=== PATIENT | male | born 1985 | race African-American/Black ===

== ENCOUNTER 2019-05-31 11:17 | Emergency (ER) | payer SELFPAY ==
[~2019-05-31] VITALS: Ht 185.4 cm; Wt 86.2 kg
[~2019-05-31 11:17] MED LIST: IBUPROFEN600 MG ORAL; KEFLEX500 MG ORAL; NKM; PREDNISONE50 MG ORAL
[2019-05-31 11:22] VITALS: BP 130/78
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
[2019-05-31] MEDS ORDERED: Augmentin 875mg Tab ORAL ONE (11:45)
[2019-05-31] MEDS: Lidocaine 1% 10mg/ml/EPI 0.01mg/ml 20ml INJ ONE ×2 (11:45→11:56)
[2019-05-31] MEDS ORDERED: Acetaminophen 500mg (ES) tab ORAL ONE (11:45)
[2019-05-31] MEDS ORDERED: Tetanus/Diptheria/Pertussis IM ONE (11:45)
[2019-05-31] MEDS ORDERED: AUGMENTIN 875-1 EAC1 ORAL (11:46)
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
--- NOTE | 2019-05-31 11:52 | NUR ---
ED Nurse Note: x-ray at bedside.
[2019-05-31 12:38] VITALS: BP 134/77
--- NOTE | 2019-05-31 12:39 | NUR ---
ER DISCHARGE NOTE: Patient is cleared to be discharged per ERMD after dressing applied on Rt hand, pt is aox4, on room air, with stable vital signs. pt was given dc and prescription instructions, pt was able to verbalize understanding, pt id band removed. pt is able to ambulate with steady gait. pt took all belongings.
--- NOTE | 2019-05-31 14:37 | Diagnostic Imaging Report ---
Indication: Pain, trauma, laceration Technique: 3 views right hand Comparison: none Findings: There is a ring on the fourth finger which reportedly could not be removed and may obscure pathology. No acute fractures. No dislocations. The joint spaces are preserved. On the lateral view, there is suggestion of one or more metallic foreign bodies as well as a soft tissue defect on the dorsum of the hand posterior to the distal metacarpals.. Impression: Positive for small dorsal metallic foreign bodies. This appears to be associated with a soft tissue defect which is probably related to stated clinical history of laceration No acute bony trauma Somewhat limited exam as described
== END 2019-05-31 12:40 | disposition home or self-care (01) ==
LOC: EMR 12:25
DX: S61.451A Open bite of right hand, initial encounter (principal); Z23 Encounter for immunization; W50.3XXA Accidental bite by another person, initial encounter; Y92.9 Unspecified place or not applicable
CPT/HCPCS: 90471; 90715; 99283